=== PATIENT | male | born 1970 | race Caucasian/White ===

== ENCOUNTER 2016-08-22 07:31 | Emergency (ER) | payer MEDICARE ==
[~2016-08-22] VITALS: Ht 175.3 cm; Wt 75.0 kg
[2016-08-22 07:33] VITALS: BP 162/107; PULSE 104; RESP 20; TEMP 98; O2SAT 98
--- NOTE | 2016-08-22 07:38 | PD ---
HPI . s/p fall 2 days ago now with right LE pain Chief Complaint: Musculoskeletal Complaint Time Seen by Provider: 07:37 Travel History International Travel<30 days: No Contact w/Intl Traveler<30days: No Traveled to known affect area: No History of Present Illness HPI 45-year-old male with history of GERD, depression, kidney stones and alcohol abuse here with complaints of a slip and fall 2 nights ago now with right lower extremity pain. Patient says he was moving from his balcony to the inside of his apartment when he tripped over the threshold landing on his right lower extremity. He is now complaining of a shooting pain in the lateral right lower extremity distal to the knee. He rates pain as 10/10. He tells me the pain is shooting when walking and throbbing when sitting. He has tried ibuprofen over- the-counter without any relief. He denies any previous injury in this leg and uses a cane for ambulation due to prior surgeries in his left lower extremity. His blood pressures elevated today, and he tells me this is normal for him. He denies any actual diagnosis of hypertension. He does not have a primary care provider. His girlfriend is present during the examination. PFSH Past Medical History Depression: Yes Diminished Hearing: No GERD: Yes Kidney Stones: Yes (WITH LITHOTRIPSY) Psychiatric: Yes (HX OF DEPRESSION) Past Surgical History Other Surgery: Yes (HYDROCELECTOMY) Social History Alcohol Use: Yes ( DAILY) Tobacco Use: Yes (1/2 TO 1 PPD) Substance Use: Yes (denies) Allergies-Medications (Allergen,Severity, Reaction): Coded Allergies: No Known Allergies (Unverified , 08/22/16) Reported Meds & Prescriptions Reported Meds & Active Scripts Active Tramadol (Tramadol HCl) 50 Mg Tab 50 Mg PO Q8H PRN Review of Systems General / Constitutional: No: Fever Eyes: No: Visual changes HENT: No: Headaches Cardiovascular: No: Chest Pain or Discomfort Respiratory: No: Shortness of Breath Gastrointestinal: No: Abdominal Pain Genitourinary: No: Dysuria Musculoskeletal: Positive: Pain (RLE) Skin: No Rash Neurologic: No: Weakness Psychiatric: No: Depression Endocrine: No: Polydipsia Hematologic/Lymphatic: No: Easy Bruising Physical Exam Narrative GENERAL: AAO x 3, no acute distress, Well-nourished, well-developed patient. Reeks of alcohol. SKIN: Warm and dry. No visible rashes or bruising. HEAD: Normocephalic and atraumatic. EYES: No scleral icterus. No injection or drainage. EOM intact, PERRLA ENT: No nasal drainage noted. Mucous membranes pink. Airway patent. NECK: Supple, trachea midline. No JVD. CARDIOVASCULAR: Regular rate and rhythm without murmurs, gallops, or rubs. RESPIRATORY: Breath sounds equal bilaterally. No accessory muscle use. No rhonchi or rales. GASTROINTESTINAL: Abdomen soft, non-tender, nondistended. EXTREMITIES: No cyanosis or edema. Bilateral lower extremities without any edema. There is no ecchymosis present. There is some tenderness to the right lower extremity with palpation to the lateral proximal aspect and anterior cross. Posterior tibial pulses are normal. Dorsi and plantar flexion are both normal. NEURO: b/l tremors BACK: Nontender without obvious deformity. No CVA tenderness. PSYCH: AAO x 3, normal affect. Data Data Last Documented VS Vital Signs Date Time Temp Pulse Resp B/P Pulse Ox O2 Delivery O2 Flow Rate FiO2 08/22/16 08:27 157/99 08/22/16 07:33 98.0 104 20 98 Room Air Orders Tibia/Fibula (Ap/Lat) (08/22/16 07:41) Tramadol (Ultram) (08/22/16 09:00) Ankle, Complete (Jin3bal) (08/22/16 08:51) Splinting (08/22/16 ) Crutches (08/22/16 ) Brace Fracture Walker (08/22/16 ) MDM Medical Decision Making Medical Screen Exam Complete: Yes Emergency Medical Condition: Yes Medical Record Reviewed: Yes Differential Diagnosis soft tissue injury, fracture, less likely DVT Narrative Course 45-year-old male with history of GERD, depression, kidney stones and alcohol abuse here with complaints of a slip and fall 2 nights ago now with right lower extremity pain. Patient says he was moving from his balcony to the inside of his apartment when he tripped over the threshold landing on his right lower extremity. He is now complaining of a shooting pain in the lateral right lower extremity distal to the knee. He rates pain as 10/10. He tells me the pain is shooting when walking and throbbing when sitting. He has tried ibuprofen over- the-counter without any relief. He denies any previous injury in this leg and uses a cane for ambulation due to prior surgeries in his left lower extremity. His blood pressures elevated today, and he tells me this is normal for him. He denies any actual diagnosis of hypertension. He does not have a primary care provider. His girlfriend is present during the examination. Patient seen and examined. I do not find any significant abnormalities on examination. Patient does have some tenderness with palpation to the right proximal lateral lower extremity as well as the anterior cross. I've explained to him that I will go ahead and check an x-ray to rule out any type of bony abnormality. My index of suspicion is low for DVT. He does not have any edema, size difference or temperature variation. He rates his pain as 10/10 and recently took 3 ibuprofen at home. He has tremors from alcohol abuse, but is not showing any signs of DTs. I will hold off on any additional medication at this time. He was upset about not getting pain meds if there is no fracture, He says, "That's why I hope it's broken because that's the only way you will give me pain medicines." Tramadol given for pain control. 0852: discussed fibula fracture with patient, checking ankle xray as discussed with Dr. Diaz. 0932: requested call back from ortho specialist employee labor relations [id number]: Spoke to Dr. Camarillo: recommends ankle support. No splint necessary for the fracture site. Patient can f/u in 1-2 weeks. Last Impressions Ankle X-Ray 08/22/16 0851 Signed Impressions: Service Date/Time: Monday, August 22, 2016 09:09 - CONCLUSION: Unremarkable examination of the right ankle. Vipul Camacho MD Tibia/Fibula X-Ray 08/22/16 0741 Signed Impressions: Service Date/Time: Monday, August 22, 2016 08:14 - CONCLUSION: Nondisplaced spiral proximal fibular fracture Zenon Collazo MD Patient was given a boot for support and crutches. [employer] provided that. Prescription for tramadol given upon discharge. Discussed with patient that he will need to follow-up with Dr. Camarillo in 1-2 weeks. Him and his significant other verbalized understanding. I also advise follow up with his primary care provider regarding his elevated blood pressure. Patient verbalized understanding of instructions, questions were answered, and thanked me for their care. I advised them if their condition worsens, please return to the nearest emergency room for further care. Diagnosis Primary Impression: Closed right fibular fracture Qualified Code: S82.444A - Closed nondisplaced spiral fracture of shaft of right fibula, initial encounter Referrals: Chad Camarillo MD 2 weeks Orthopedist Patient Instructions: General Instructions, Leg Fracture (ED) Additional Instructions: Rest the affected area as much as possible. Ice this area for 15-20 minutes at a time. You can do this every hour or as much as tolerated. Keep this area compressed (dominguez bandage) as tolerated. Elevate this area. Use ibuprofen as needed for pain and inflammation. Please return to emergency department if your symptoms return or worsen. Follow up with your primary care provider. Take medications as prescribed. Please follow-up with your primary care provider regarding your blood pressure. It needs to be monitored. Please follow-up with Dr. Camarillo in 1-2 weeks. His information has been attached to this documentation. Scripts Tramadol 50 Mg Tab50 Mg PO Q8H PRN (PAIN) #10 TAB Ref 0 Prov:Mary Diaz MD 08/22/16 Disposition: 01 DISCHARGE HOME Condition: Stable Janeen Estrella Aug 22, 2016 07:38
--- NOTE | 2016-08-22 08:18 | RADRPT ---
EXAM DATE/TIME: 08/22/2016 08:14 [facility] COMPARISON: No previous studies available for comparison. INDICATIONS : Right lower leg pain after fall. MEDICAL HISTORY : None. SURGICAL HISTORY : None. ENCOUNTER: Initial ACUITY: 3 days PAIN SCORE: 10/10 LOCATION: Right leg. FINDINGS: There is a nondisplaced spiral fracture of the proximal right fibula beginning about 8-9 cm distal to the top of the fibular head. The tibia is intact and unremarkable throughout CONCLUSION: Nondisplaced spiral proximal fibular fracture Zenon Collazo MD on August 22, 2016 at 8:15 Board Certified Radiologist. This report was verified electronically.
[2016-08-22 08:27] VITALS: BP 157/99
[2016-08-22] MEDS ORDERED: TRAM50TA PO (08:47)
[2016-08-22] MEDS ORDERED: traMADol HCL 50 MG TAB PO ONE (09:00)
--- NOTE | 2016-08-22 09:19 | RADRPT ---
EXAM DATE/TIME: 08/22/2016 09:09 [facility] COMPARISON: No previous studies available for comparison. INDICATIONS : Fell 2 days ago. MEDICAL HISTORY : None. SURGICAL HISTORY : None. ENCOUNTER: Initial ACUITY: 2 days PAIN SCORE: 0/10 LOCATION: Right ankle FINDINGS: Three view exam was performed of the right ankle. The bony structures are in normal alignment. No e vidence of fracture, dislocation, or soft tissue swelling. The ankle mortise is intact. No radiopaq ue foreign bodies are seen. Bony mineralization is normal. CONCLUSION: Unremarkable examination of the right ankle. Vipul Camacho MD on August 22, 2016 at 9:17 Board Certified Radiologist. This report was verified electronically.
== END 2016-08-22 11:31 | disposition home or self-care (01) ==
LOC: NEPK 07:31
DX: S82.444A Nondisplaced spiral fracture of shaft of right fibula, initial encounter for closed fracture (principal); W01.0XXA Fall on same level from slipping, tripping and stumbling without subsequent striking against object, initial encounter; Y93.01 Activity, walking, marching and hiking; Y92.008 Other place in unspecified non-institutional (private) residence as the place of occurrence of the external cause; K21.9 Gastro-esophageal reflux disease without esophagitis; F17.210 Nicotine dependence, cigarettes, uncomplicated
CPT/HCPCS: 73590; 73610; 99283; E0113; L2114